=== PATIENT | male | born 1985 | race Two or more races ===

== ENCOUNTER 2024-09-23 14:26 | Outpatient (AMB) | payer MEDICAID, SELFPAY ==
[2024-09-23 14:50] VITALS: BP 146/78; PULSE 75; RESP 18; TEMP 36.9; O2SAT 97; BMI 33.0
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
== END 2024-09-23 15:20 | disposition home or self-care (01) ==
LOC: HODSRG 14:26
PROVIDERS: PCP Physician Assistant; Referring Provider Physician Assistant; Supervising Provider Surgery; Visit Provider Surgery
DX: Z48.815 Encounter for surgical aftercare following surgery on the digestive system (principal)
CPT/HCPCS: 99213; G0463

== ENCOUNTER 2024-11-04 14:45 | Outpatient (AMB) | payer MEDICAID, SELFPAY ==
[2024-11-04 14:52] VITALS: BP 130/77; PULSE 72; RESP 19; TEMP 36.6; O2SAT 96; BMI 32.8
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
== END 2024-11-04 15:18 | disposition home or self-care (01) ==
LOC: HODSRG 14:45
PROVIDERS: PCP Physician Assistant; Referring Provider Physician Assistant; Supervising Provider Surgery; Visit Provider Surgery
DX: Z48.815 Encounter for surgical aftercare following surgery on the digestive system (principal)
CPT/HCPCS: 99213; G0463